=== PATIENT | female | born 1990 | race Caucasian/White ===

== ENCOUNTER 2016-12-08 11:31 | Emergency (ER) | payer SELFPAY ==
[~2016-12-08 11:31] MED LIST: ALBU17AE3; PRENATAL VIT
[2016-12-08 12:37] LABS: BASOPHILS % (AUTO) 0 % (0-10); EOSINOPHILS # (AUTO) 0.1 10^3/uL (0.0-0.3); EOSINOPHILS % (AUTO) 1 % (0-10); LYMPHOCYTES # (AUTO) 1.4 X 10^3 (1.0-4.0); LYMPHOCYTES % (AUTO) 18 % (12-44); MEAN CORPUSCULAR HEMOGLOBIN 32 PG (25-34); MEAN CORPUSCULAR HGB CONC 34 G/DL (32-36); MEAN CORPUSCULAR VOLUME 92 FL (80-99); MEAN PLATELET VOLUME 10.7 FL (7.4-10.4); MONOCYTES # (AUTO) 0.8 X 10^3 (0.0-1.0); MONOCYTES % (AUTO) 11 % (0-12); NEUTROPHILS # (AUTO) 5.3 X 10^3 (1.8-7.8); NEUTROPHILS % (AUTO) 69 % (42-75); PLATELET COUNT 224 10^3/uL (130-400); RED BLOOD COUNT 4.18 10^6/uL (4.35-5.85); WHITE BLOOD COUNT 7.6 10^3/uL (4.3-11.0)
[2016-12-08 12:44] LABS: BILIRUBIN,URINE NEGATIVE (NEGATIVE); KETONES,URINE NEGATIVE (NEGATIVE); LEUKOCYTE ESTERASE ,URINE 2+ (NEGATIVE); NITRITE,URINE NEGATIVE (NEGATIVE); PH,URINE 7 (5-9); PROTEIN,URINE NEGATIVE (NEGATIVE); UROBILINOGEN,URINE NORMAL (NORMAL)
[2016-12-08 12:48] LABS: INR 1.1 (0.8-1.4); PROTHROMBIN TIME PATIENT 13.5 SEC (12.2-14.7)
[2016-12-08 12:52] LABS: SQUAMOUS EPITHELIAL CELL,UR 25-50 /HPF; WBC,URINE 0-2 /HPF
[2016-12-08 12:56] LABS: ALANINE AMINOTRANSFERASE 17 U/L (0-55); ALBUMIN 4.8 G/DL (3.2-4.5); ANION GAP 9 MMOL/L (5-14); ASPARTATE AMINO TRANSFERASE 16 U/L (5-34); BILIRUBIN,TOTAL 0.6 MG/DL (0.1-1.0); BLOOD UREA NITROGEN 11 MG/DL (7-18); BUN/CREATININE RATIO 14; CALCIUM 9.7 MG/DL (8.5-10.1); CARBON DIOXIDE 25 MMOL/L (21-32); CHLORIDE 107 MMOL/L (98-107); CREATININE SERUM 0.81 MG/DL (0.60-1.30); GFR ESTIMATED > 60; GLUCOSE 88 MG/DL (70-105); MAGNESIUM 2.4 MG/DL (1.8-2.4); POTASSIUM 3.8 MMOL/L (3.6-5.0); SALICYLATE < 5.0 MG/DL (5.0-20.0); SODIUM 141 MMOL/L (135-145); TOTAL PROTEIN 7.7 G/DL (6.4-8.2)
[2016-12-08 12:58] LABS: ACETAMINOPHEN < 10 UG/ML (10-30); ALCOHOL < 10 MG/DL (<10)
[2016-12-08 13:16] LABS: TROPONIN I < 0.30 NG/ML (<0.30)
--- NOTE | 2016-12-08 13:30 | ED Neurological Problem ---
General Chief Complaint: seizure Stated Complaint: SEIZURE Nursing Triage Note: patient c/o possible "seizure" last night. denies previous history. Source: patient Exam Limitations: no limitations History of Present Illness Time seen by provider: 11:55 Initial Comments 26 yo female patient present to the emergency department with complaints of possible seizure last night. Denies any previous history of seizures. States she had drank approximately 16 ounces of wine, but states she was not driving. Reports feeling very "distant". [place] like the "world was rocking and spending in the distance". Patient remembers the entire episode. Reports episode lasted several hours. Does report possible syncopal episode, but states she remembers everything after falling backwards. Thinks she may have hit her head , but unsure. Reports when she woke up immediately she said "that was weird, right?". Patient reports "pooping and puking everywhere [in the bathroom]". Friend reported patient was "tremoring". Denies biting her tongue, bowel incontinence, or urinary incontinence. Did feel nauseated, but denies vomiting. Timing/Duration: waxing and waning, other (12-24 hrs) Allergies and Home Medications Allergies Coded Allergies: No Known Drug Allergies (Unverified Allergy, Mild, 11/26/08) Home Medications Albuterol 17 Gm Inh, (Reported) [ Vit] , (Reported) Constitutional: No chills, No diaphoresis, No dizziness, No fever, malaise, No other (fatigue) Eyes: Denies Blindness, Denies Blurred Vision, Denies Decreased Acuity, Denies Tunnel Vision, Denies Vision Changes Ears, Nose, Mouth, Throat: no symptoms reported Respiratory: No cough, No short of breath Cardiovascular: No chest pain, No edema, No palpitations, No syncope Gastrointestinal: No abdominal pain, No constipation, No diarrhea, No loss of appetite, No melena, No nausea (had mild nausea yesterday, none today.), No vomiting Genitourinary: No decreased output, No dysuria, No frequency, No hematuria, No incontinence, No pain : No Musculoskeletal: no symptoms reported Skin: No change in color, No lesions, No lumps, No rash Psychiatric/Neurological: See HPI All Other Systems Reviewed Negative Unless Noted: Yes (Negative excepted noted.) Past Ntudmlz-Ksgpau-Bwthpi Hx Patient Social History Recent Foreign Travel: No Contact w/Someone Who Travel: No Surgeries HX Surgeries: Yes (oral surgery) Surgeries: Appendectomy Respiratory Hx Respiratory Disorders: Yes Cardiovascular Hx Cardiac Disorders: No Neurological Hx Neurological Disorders: No Reproductive System Hx Reproductive Disorders: No Genitourinary Hx Genitourinary Disorders: No Gastrointestinal Hx Gastrointestinal Disorders: No Musculoskeletal Hx Musculoskeletal Disorders: No Endocrine Hx Endocrine Disorders: No HEENT HX ENT Disorders: Yes Psychosocial Hx Psychiatric Problems: No Blood Transfusions Hx Blood Disorders: Yes Reviewed Nursing Assessment Reviewed/Agree w Nursing PMH: Yes Family Medical History Significant Family History: No Pertinent Family Hx Physical Exam Vital Signs Capillary Refill : General Appearance: WD/WN, no apparent distress HEENT: PERRL/EOMI, normal ENT inspection, TMs normal, pharynx normal Neck: non-tender, full range of motion, supple, normal inspection Respiratory: lungs clear, normal breath sounds, no respiratory distress Cardiovascular: normal peripheral pulses, regular rate, rhythm, no edema, no murmur Peripheral Pulses: 2+ Carotid (R), 2+ Carotid (L), 2+ Dorsalis Pedis (R), 2+ Left Dors-Pedis (L), 2+ Radial Pulses (R), 2+ Radial Pulses (L) Gastrointestinal: normal bowel sounds, non tender, soft, No distended Back: normal inspection, no vertebral tenderness Extremities: normal inspection, no pedal edema, normal capillary refill Neurologic/Psychiatric: strategy analyst II-XII nml as tested, no motor/sensory deficits, alert, oriented x 3, other (flat affect) Crainal Nerves: normal hearing, normal speech, PERRL Coordination/Gait: normal finger to nose, normal gait, negative Romberg's sign Motor/Sensory: no motor deficit, no sensory deficit, no pronator drift Skin: normal color, warm/dry Progress/Results/Core Measures Results/Orders Lab Results Laboratory Tests Test 12/08/16 12:30 Range/Units White Blood Count 7.6 4.3-11.0 10^3/uL Red Blood Count 4.18 L 4.35-5.85 10^6/uL Hemoglobin 13.2 11.5-16.0 G/DL Hematocrit 39 35-52 % Mean Corpuscular Volume 92 80-99 FL Mean Corpuscular Hemoglobin 32 25-34 PG Mean Corpuscular Hemoglobin Concent 34 32-36 G/DL Red Cell Distribution Width 12.0 10.0-14.5 % Platelet Count 224 130-400 10^3/uL Mean Platelet Volume 10.7 H 7.4-10.4 FL Neutrophils (%) (Auto) 69 42-75 % Lymphocytes (%) (Auto) 18 12-44 % Monocytes (%) (Auto) 11 0-12 % Eosinophils (%) (Auto) 1 0-10 % Basophils (%) (Auto) 0 0-10 % Neutrophils # (Auto) 5.3 1.8-7.8 X 10^3 Lymphocytes # (Auto) 1.4 1.0-4.0 X 10^3 Monocytes # (Auto) 0.8 0.0-1.0 X 10^3 Eosinophils # (Auto) 0.1 0.0-0.3 10^3/uL Basophils # (Auto) 0.0 0.0-0.1 10^3/uL Prothrombin Time 13.5 12.2-14.7 SEC INR Comment 1.1 0.8-1.4 Activated Partial Thromboplast Time 28 24-35 SEC Urine Color YELLOW Urine Clarity CLEAR Urine pH 7 5-9 Urine Specific [place] 1.015 L 1.016-1.022 Urine Protein NEGATIVE NEGATIVE Urine Glucose (UA) NEGATIVE NEGATIVE Urine Ketones NEGATIVE NEGATIVE Urine Nitrite NEGATIVE NEGATIVE Urine Bilirubin NEGATIVE NEGATIVE Urine Urobilinogen NORMAL NORMAL MG/DL Urine Leukocyte Esterase 2+ H NEGATIVE Urine RBC (Auto) 1+ H NEGATIVE Urine RBC NONE /HPF Urine WBC 0-2 /HPF Urine Squamous Epithelial Cells 25-50 H /HPF Urine Crystals NONE /LPF Urine Bacteria TRACE /HPF Urine Casts NONE /LPF Urine Mucus NEGATIVE /LPF Urine Culture Indicated NO Sodium Level 141 135-145 MMOL/L Potassium Level 3.8 3.6-5.0 MMOL/L Chloride Level 107 98-107 MMOL/L Carbon Dioxide Level 25 21-32 MMOL/L Anion Gap 9 5-14 MMOL/L Blood Urea Nitrogen 11 7-18 MG/DL Creatinine 0.81 0.60-1.30 MG/DL Estimat Glomerular Filtration Rate > 60 BUN/Creatinine Ratio 14 Glucose Level 88 70-105 MG/DL Calcium Level 9.7 8.5-10.1 MG/DL Magnesium Level 2.4 1.8-2.4 MG/DL Total Bilirubin 0.6 0.1-1.0 MG/DL Aspartate Amino Transf (AST/SGOT) 16 5-34 U/L Alanine Aminotransferase (ALT/SGPT) 17 0-55 U/L Alkaline Phosphatase 62 40-136 U/L Troponin I < 0.30 <0.30 NG/ML Total Protein 7.7 6.4-8.2 G/DL Albumin 4.8 H 3.2-4.5 G/DL TSH [place] Testing 1.07 0.35-4.94 UIU/ML Salicylates Level < 5.0 L 5.0-20.0 MG/DL Urine Opiates Screen NEGATIVE NEGATIVE Urine Oxycodone Screen NEGATIVE NEGATIVE Urine Methadone Screen NEGATIVE NEGATIVE Urine Propoxyphene Screen NEGATIVE NEGATIVE Acetaminophen Level < 10 L 10-30 UG/ML Urine Barbiturates Screen NEGATIVE NEGATIVE Ur Tricyclic Antidepressants Screen NEGATIVE NEGATIVE Urine Phencyclidine Screen NEGATIVE NEGATIVE Urine Amphetamines Screen NEGATIVE NEGATIVE Urine Methamphetamines Screen NEGATIVE NEGATIVE Urine Benzodiazepines Screen NEGATIVE NEGATIVE Urine Cocaine Screen NEGATIVE NEGATIVE Urine Cannabinoids Screen POSITIVE H NEGATIVE Serum Alcohol < 10 <10 MG/DL My Orders Orders - NUNO FARIAS Acetaminophen (12/08/16 12:02) Alcohol (12/08/16 12:02) Cbc With Automated Diff (12/08/16 12:02) Comprehensive Metabolic Panel (12/08/16 12:02) Drug Screen Stat (Urine) (12/08/16 12:02) Magnesium (12/08/16 12:02) Protime With Inr (12/08/16 12:02) Partial Thromboplastin Time (12/08/16 12:02) Salicylate (12/08/16 12:02) Thyroid Analyzer (12/08/16 12:02) Troponin I (12/08/16 12:02) Ua Culture If Indicated (12/08/16 12:02) Saline Lock/Iv-Start (12/08/16 12:02) Urine Bedside (12/08/16 12:02) Ekg Tracing (12/08/16 12:02) Chest 1 View, Ap/Pa Only (12/08/16 12:02) Ct Head Wo (12/08/16 13:01) Point of Care Testing Urine -Bedside: Negative ECG Initial ECG Impression Date: Dec 08, 2016 Initial ECG Impression Time: 12:33 Initial ECG Rate: 64 Initial ECG Rhythm: Normal Sinus Initial ECG Intervals: Normal Initial ECG Impression: Normal Initial ECG Comparisson: No Previous ECG Available Comment Sinus rhythm. ECG reviewed by Dr. Guadalupe. Diagnostic Imaging Diagonstic Imaging: Xray Plain Films/CT/US/NM/MRI: chest Comments FINDINGS: Heart size is within normal limits. The lungs are clear. There is no evidence for pneumonia or for pleural effusion. There is no sign of failure. The mediastinum is not widened. The osseous structures are intact. IMPRESSION: There is no evidence for an acute cardiopulmonary abnormality. Dictated on workstation # [id number] Reviewed: Reviewed by Me (radiology report reviewed by me.) Diagonstic Imaging: CT Plain Films/CT/US/NM/MRI: head Comments There are no prior studies available for comparison. There is no mass, shift of the midline or hemorrhage to suggest an acute intracranial abnormality. The ventricles are not abnormally dilated. The bone windows show no sign of a fracture or of a destructive lesion. The orbits and sinuses were not visualized in their entirety. Where visualized, there is no acute abnormality. IMPRESSION: 1. There is no evidence for an acute intracranial abnormality. There is no sign of a mass lesion either. 2. If clinical concern regarding an underlying abnormality persists, MRI would be recommended for further study. Dictated on workstation # [id number] Reviewed: Reviewed by Me (radiology report reviewed by me.) Departure Communication Progress Notes laboratory and diagnostic findings discussed with the patient. Plan for discharge to home. All return precautions were discussed with the patient. Patient voices understanding and agrees with treatment plan. Impression Impression: Primary Impression: Near syncope Disposition: 01 HOME, SELF-CARE Condition: Improved Departure-Patient Inst. Decision time for Depature: 14:00 Referrals: [facility] (PCP) Primary Care Physician Patient Instructions: Seizures, Adult (DC), Syncope (Fainting) (DC) Add. Discharge Instructions: Tylenol over the counter as needed for pain. Motrin 800 mg by mouth every 8 hours as needed for pain. Drink plenty of fluids. Follow-up with your family practitioner for recheck early this week. Return to the emergency department for worsened symptoms or any other concerns. NUNO FARIAS Dec 08, 2016 13:30
--- NOTE | 2016-12-08 13:40 | Diagnostic Imaging Report ---
Portable erect AP chest at 1247 hours. INDICATION: Seizure, fatigue. There are no prior studies available for comparison. FINDINGS: Heart size is within normal limits. The lungs are clear. There is no evidence for pneumonia or for pleural effusion. There is no sign of failure. The mediastinum is not widened. The osseous structures are intact. IMPRESSION: There is no evidence for an acute cardiopulmonary abnormality. Dictated by: Dictated on workstation # [id number]
--- NOTE | 2016-12-08 14:17 | Diagnostic Imaging Report ---
PROCEDURE: CT head without contrast. TECHNIQUE: Multiple contiguous axial images were obtained through the brain without the use of intravenous contrast. INDICATION: Seizure. There are no prior studies available for comparison. There is no mass, shift of the midline or hemorrhage to suggest an acute intracranial abnormality. The ventricles are not abnormally dilated. The bone windows show no sign of a fracture or of a destructive lesion. The orbits and sinuses were not visualized in their entirety. Where visualized, there is no acute abnormality. IMPRESSION: 1. There is no evidence for an acute intracranial abnormality. There is no sign of a mass lesion either. 2. If clinical concern regarding an underlying abnormality persists, MRI would be recommended for further study. Dictated by: Dictated on workstation # [id number]
== END 2016-12-08 14:48 | disposition home or self-care (01) ==
LOC: EDUNIT# 11:31 → ER 11:33
DX: R55 Syncope and collapse (principal); F10.10 Alcohol abuse, uncomplicated
CPT/HCPCS: 36415; 70450; 71010; 80053; 80306; 80320; 80329; 81000; 83735; 84443; 84484; 84703; 85025; 85610; 85730; 93005

== ENCOUNTER 2022-11-15 19:10 | Emergency (ER) | payer BC ==
[~2022-11-15] VITALS: Ht 167.7 cm; Wt 77.9 kg
[2022-11-15 19:13] VITALS: BP 141/93
--- NOTE | 2022-11-15 19:25 | ED GU-Female ---
General Stated Complaint: VAG BLEEDING Source: patient History of Present Illness Date Seen by Provider: November 15, 2022 Time Seen by Provider: 19:22 Initial Comments PT ARRIVES VIA POV FROM HOME C/O VAGINAL BLEEDING FOR 2 WEEKS BLEEDING WAS INITIALLY DARK BROWN/RED, AND FOR THE LAST 3 DAYS HAS BEEN BRIGHT RED BLEEDING HAS BEEN HEAVIER TODAY, AND SHE HAS USED 3 SUPER TAMPONS SINCE 1400, AND JUST PRIOR TO ARRIVAL SHE PASSED WHAT SHE THINKS IS "TISSUE" BLEEDING HAS SLOWED SINCE SHE PASSED THIS SHE HAS BEEN HAVING INTERMITTENT LOW ABDOMINAL PAIN TODAY--DULL, CRAMPING. + NAUSEA, NO VOMITING. NO DIARRHEA NO URINARY SYMPTOMS AND VOIDING A NORMAL AMOUNT NO FEVER PT IS AB 0 --SON IS 15 YEARS OLD. SHE HAS ONLY HAD 1 DEPO-PROVERA SHOT--THAT WAS IN MID JULY, WAS DUE FOR SECOND SHOT 10/22/22, BUT DID NOT GET IT--GIVES NO REASON WHY SHE DID NOT GO BACK FOR ANOTHER SHOT. SHE HAS NOT BEEN ON ANY OTHER CONTROL SINCE THEN. SHE STATES SHE ONLY HAD OCCASIONAL SPOTTING WHILE ON DEPO-PROVERA. SHE HAS HAD PRIOR APPENDECTOMY AT AGE 18 NO PRIOR HYDROLOGY PROFESSOR PROBLEMS NO CHRONIC MEDICAL PROBLEMS, AND NO DAILY MEDICATIONS. PCP: [facility] Allergies and Home Medications Allergies Coded Allergies: No Known Drug Allergies (Unverified Allergy, Mild, 11/26/08) Patient Home Medication List Home Medication List Reviewed: Yes Albuterol (Proventil) 17 Gm Inh, (Reported) Entered as Reported by: CLEMENT SUTTON on 11/26/08 2834 [ Vit] , (Reported) Entered as Reported by: CLEMENT SUTTON on 11/26/08 3090 Review of Systems Review of Systems Constitutional: no symptoms reported Respiratory: no symptoms reported Cardiovascular: no symptoms reported Gastrointestinal: see HPI Genitourinary: see HPI Musculoskeletal: no symptoms reported Skin: no symptoms reported Psychiatric/Neurological: No Symptoms Reported Past Ycgleiu-Imthwx-Jphizy Hx Patient Social History Tobacco Use?: No Substance use?: No Alcohol Use?: Yes Alcohol Frequency: Couple times a week Past Medical History Surgeries: Yes Appendectomy Respiratory: Yes Asthma Cardiac: No Neurological: No Reproductive Disorders: No HYDROLOGY PROFESSOR History: IUD Gastrointestinal: No Musculoskeletal: No Endocrine: No HEENT: No Cancer: No Psychosocial: No Blood Disorders: Yes Family Medical History No Pertinent Family Hx Physical Exam Vital Signs Vital Signs - First Documented 11/15/22 19:13 Temp 36.1 Pulse 64 Resp 16 B/P (MAP) 141/93 (109) Pulse Ox 97 O2 Delivery Room Air Capillary Refill : Height, Weight, BMI Height: 5'6.00" Weight: 165lbs. oz. 74.052521pg; BMI Method:Stated General Appearance: WD/WN, no apparent distress HEENT: PERRL/EOMI Neck: normal inspection Cardiovascular: regular rate, rhythm Respiratory: normal breath sounds Gastrointestinal: soft, tenderness (MILD SUPRAPUBIC TENDERNESS) Extremities: normal inspection, normal capillary refill Neurologic/Psychiatric: health it specialist II-XII nml as tested, no motor/sensory deficits, alert, normal mood/affect, oriented x 3 Skin: normal color, warm/dry Progress/Results/Core Measures Suspected Sepsis SIRS Temperature: Pulse: Respiratory Rate: Laboratory Tests 11/15/22 19:28: White Blood Count 8.1 Blood Pressure / Mean: Laboratory Tests 11/15/22 19:28: Creatinine 0.88, Platelet Count 256 Results/Orders Lab Results Laboratory Tests Test 11/15/22 19:28 Range/Units White Blood Count 8.1 4.3-11.0 10^3/uL Red Blood Count 4.12 3.80-5.11 10^6/uL Hemoglobin 12.7 11.5-16.0 g/dL Hematocrit 37 35-52 % Mean Corpuscular Volume 90 80-99 fL Mean Corpuscular Hemoglobin 31 25-34 pg Mean Corpuscular Hemoglobin Concent 34 32-36 g/dL Red Cell Distribution Width 11.9 10.0-14.5 % Platelet Count 256 130-400 10^3/uL Mean Platelet Volume 10.4 9.0-12.2 fL Immature Granulocyte % (Auto) 0 % Neutrophils (%) (Auto) 62 42-75 % Lymphocytes (%) (Auto) 28 12-44 % Monocytes (%) (Auto) 7 0-12 % Eosinophils (%) (Auto) 1 0-10 % Basophils (%) (Auto) 1 0-10 % Neutrophils # (Auto) 5.1 1.8-7.8 10^3/uL Lymphocytes # (Auto) 2.3 1.0-4.0 10^3/uL Monocytes # (Auto) 0.6 0.0-1.0 10^3/uL Eosinophils # (Auto) 0.1 0.0-0.3 10^3/uL Basophils # (Auto) 0.1 0.0-0.1 10^3/uL Immature Granulocyte # (Auto) 0.0 0.0-0.1 10^3/uL Urine Color YELLOW Urine Clarity CLEAR Urine pH 6.0 5-9 Urine Specific [place] 1.010 L 1.016-1.022 Urine Protein NEGATIVE NEGATIVE Urine Glucose (UA) NEGATIVE NEGATIVE Urine Ketones NEGATIVE NEGATIVE Urine Nitrite NEGATIVE NEGATIVE Urine Bilirubin NEGATIVE NEGATIVE Urine Urobilinogen 0.2 < = 1.0 MG/DL Urine Leukocyte Esterase NEGATIVE NEGATIVE Urine RBC (Auto) 3+ H NEGATIVE Urine RBC 25-50 H /HPF Urine WBC NONE /HPF Urine Squamous Epithelial Cells 0-2 /HPF Urine Crystals NONE /LPF Urine Bacteria NEGATIVE /HPF Urine Casts NONE /LPF Urine Mucus NEGATIVE /LPF Urine Culture Indicated NO Sodium Level 137 135-145 MMOL/L Potassium Level 3.8 3.6-5.0 MMOL/L Chloride Level 106 98-107 MMOL/L Carbon Dioxide Level 19 L 21-32 MMOL/L Anion Gap 12 5-14 MMOL/L Blood Urea Nitrogen 16 7-18 MG/DL Creatinine 0.88 0.60-1.30 MG/DL Estimat Glomerular Filtration Rate 91 BUN/Creatinine Ratio 18 Glucose Level 102 70-105 MG/DL Calcium Level 8.5 8.5-10.1 MG/DL Human Chorionic Gonadotropin, Quant < 5 <5 MIU/ML My Orders Orders - SUSHANT GABRIEL DO Basic Metabolic Panel (11/15/22 19:22) Cbc With Automated Diff (11/15/22 19:22) Hcg,Quantitative (11/15/22 19:22) Ed Iv/Invasive Line Start (11/15/22 19:22) Monitor-Rhythm Ecg Trace Only (11/15/22 19:22) Ua Culture If Indicated (11/15/22 19:34) Vital Signs/I&O 11/15/22 19:13 Temp 36.1 Pulse 64 Resp 16 B/P (MAP) 141/93 (109) Pulse Ox 97 O2 Delivery Room Air Capillary Refill : Progress Note : Progress Note PT DID NOT GO THROUGH ANY PADS OR TAMPONS DURING ER STAY PT DECLINES PELVIC EXAM BLOOD TYPE IS O+ DISCUSSED TEST RESULTS, ANTICIPATED COURSE, NEED FOR FOLLOW UP AND RETURN PRECAUTIONS. HER QUANT BETA HCG IS UNDETECTABLE, IT IS UNLIKELY THAT SHE HAS BEEN RECENTLY OR THAT WHAT SHE PASSED TODAY WAS TISSUE FROM A . DISCUSSED THAT HER SYMPTOMS WERE LIKELY DUE TO HER RECENT STARTING AND THEN STOPPING OF DEPO-PROVERA, AND THAT IRREGULAR BLEEDING WAS EXPECTED FOR SOME TIME, AND SHE HAS DISCONTINUED IT, HER BLEEDING WOULD LIKELY BE HEAVIER SHE HAS NOT HAD ANY SIGNIFICANT BLEEDING SINCE SHE STARTED IT IN JULY. DISCUSSED OPTION OF OTHER CONTROL, AND PT IS ADAMANT THAT SHE DOES NOT WANT ANY KIND OF CONTROL AT THIS TIME. Departure Impression Primary Impression: IRREGULAR VAGINAL BLEEDING Disposition: HOME, SELF-CARE Condition: Stable Departure-Patient Inst. Decision time for Depature: 21:05 Referrals: EMI RUTH APRN (PCP) Primary Care Physician Patient Instructions: IRREGULAR VAGINAL BLEEDING Add. Discharge Instructions: FOLLOW UP WITH [facility] NEEDED SUSHANT GABRIEL DO November 15, 2022 19:25
[2022-11-15 19:40] LABS: BILIRUBIN,URINE NEGATIVE (NEGATIVE); CLARITY,URINE CLEAR; COLOR,URINE YELLOW; GLUCOSE, URINE (UA) NEGATIVE (NEGATIVE); KETONES,URINE NEGATIVE (NEGATIVE); LEUKOCYTE ESTERASE ,URINE NEGATIVE (NEGATIVE); NITRITE,URINE NEGATIVE (NEGATIVE); PROTEIN,URINE NEGATIVE (NEGATIVE)
[2022-11-15 19:44] LABS: BASOPHILS # (AUTO) 0.1 10^3/uL (0.0-0.1); BASOPHILS % (AUTO) 1 % (0-10); EOSINOPHILS # (AUTO) 0.1 10^3/uL (0.0-0.3); EOSINOPHILS % (AUTO) 1 % (0-10); HEMATOCRIT 37 % (35-52); HEMOGLOBIN 12.7 g/dL (11.5-16.0); LYMPHOCYTES # (AUTO) 2.3 10^3/uL (1.0-4.0); LYMPHOCYTES % (AUTO) 28 % (12-44); MEAN CORPUSCULAR HEMOGLOBIN 31 pg (25-34); MEAN CORPUSCULAR HGB CONC 34 g/dL (32-36); MEAN CORPUSCULAR VOLUME 90 fL (80-99); MEAN PLATELET VOLUME 10.4 fL (9.0-12.2); MONOCYTES # (AUTO) 0.6 10^3/uL (0.0-1.0); MONOCYTES % (AUTO) 7 % (0-12); NEUTROPHILS # (AUTO) 5.1 10^3/uL (1.8-7.8); NEUTROPHILS % (AUTO) 62 % (42-75); PLATELET COUNT 256 10^3/uL (130-400); WHITE BLOOD COUNT 8.1 10^3/uL (4.3-11.0)
[2022-11-15 19:53] LABS: BACTERIA,URINE NEGATIVE /HPF; RBC,URINE 25-50 /HPF; SQUAMOUS EPITHELIAL CELL,UR 0-2 /HPF
[2022-11-15 20:06] LABS: BUN/CREATININE RATIO 18; CALCIUM 8.5 MG/DL (8.5-10.1); CARBON DIOXIDE 19 MMOL/L (21-32); CHLORIDE 106 MMOL/L (98-107); CREATININE SERUM 0.88 MG/DL (0.60-1.30); GFR ESTIMATED 91; GLUCOSE 102 MG/DL (70-105); POTASSIUM 3.8 MMOL/L (3.6-5.0); SODIUM 137 MMOL/L (135-145)
== END 2022-11-15 21:11 | disposition home or self-care (01) ==
LOC: EDUNIT# 19:10 → ER 19:12
DX: N93.9 Abnormal uterine and vaginal bleeding, unspecified (principal); Z90.49 Acquired absence of other specified parts of digestive tract; Z28.311 Partially vaccinated for COVID-19
CPT/HCPCS: 36415; 80048; 81000; 84702; 85025; 93041

== ENCOUNTER 2022-11-23 09:10 | Outpatient (RCR) | payer BC | END 2022-11-23 14:28 | disposition home or self-care (01) | DX: M54.50 Low back pain, unspecified (principal) ==

== ENCOUNTER → 2022-12-14 | Outpatient (CLI) | payer BC ==
[~2022-12-14] MED LIST changes: +POLY17PO6 PO; +PSYL0.4C2 PO
--- NOTE | 2022-12-14 10:11 | Diagnostic Imaging Report ---
PROCEDURE: US Gallbladder. TECHNIQUE: Multiple real-time grayscale images were obtained over the right upper quadrant in various projections. INDICATION: Abdominal pain. Liver is upper limits of normal in size at 17.6 cm. Portal vein is patent and shows normal direction of flow. No liver mass is detected. Gallbladder is without stones or sludge. No wall thickening or biliary duct dilatation is seen. The pancreas is unremarkable. Aorta is non-aneurysmal. IVC is patent. Right kidney contains a 12 mm cyst in the upper pole. No calculi or hydronephrosis is detected. There is no ascites. IMPRESSION: 1. No evidence of cholelithiasis or acute cholecystitis. Dictated by: Dictated on workstation # [id number]
== END ==
LOC: RAD 08:33
PROVIDERS: ATTEND Surgery
DX: R10.9 Unspecified abdominal pain (principal)
CPT/HCPCS: 76705

== ENCOUNTER 2022-12-17 10:43 | Outpatient (CLI) | payer BC ==
[~2022-12-17] VITALS: Ht 167.6 cm; Wt 77.4 kg
[~2022-12-17 10:43] MED LIST changes: -POLY17PO6 PO; -PSYL0.4C2 PO
[2022-12-18] MEDS ORDERED: POLY17PO6 PO (10:34)
[2022-12-18] MEDS ORDERED: PSYL0.4C2 PO (10:34)
== END 2022-12-18 10:38 | disposition home or self-care (01) ==
LOC: PREOP 10:43
PROVIDERS: ATTEND Surgery
DX: Z01.818 Encounter for other preprocedural examination (principal)

== ENCOUNTER 2022-12-24 09:25 | Day surgery (SDC) | payer BC ==
[~2022-12-24] VITALS: Ht 167.6 cm; Wt 77.4 kg
[~2022-12-24 09:25] MED LIST changes: +POLY17PO6 PO; +PSYL0.4C2 PO
[2022-12-24] MEDS ORDERED: LACTATED RINGERS 1,000 ML IV STA (09:27)
[2022-12-24] MEDS ORDERED: HURRICAINE EXT TUBE (BENZOCAINE) XX PRN (09:30)
[2022-12-24 09:35] VITALS: BP 143/83
[2022-12-24] MEDS ORDERED: HURRICAINE EXT TUBE (BENZOCAINE) ONE (09:48)
[2022-12-24] MEDS ORDERED: LACTATED RINGERS 1,000 ML IV ONE (09:48)
--- NOTE | 2022-12-24 10:08 | Progress Note-Pre Operative ---
Pre-Operative Progress Note Date of Available H&P: Dec 11, 2022 Date H&P Reviewed: Dec 24, 2022 Time H&P Reviewed: 10:06 History & Physical: H&P Reviewed, Patient Examed, No changes noted Pre-Operative Diagnosis: Change in bowel habits, abd pain, epigastric pain JUANCHO ALVAREZ DO Dec 24, 2022 10:08
[2022-12-24] MEDS ORDERED: MIDAZOLAM 2 MG/2 ML (VERSED) VIAL ONE (11:24)
[2022-12-24] MEDS ORDERED: PROPOFOL INJECTION 50 ML IV ONE ×2 (11:24→11:37)
[2022-12-24 11:50] VITALS: BP 122/74
--- NOTE | 2022-12-24 11:51 | Progress Note-Post Operative ---
Post-Operative Progess Note Surgeon (s)/Respiratory Director (s) Surgeon JUANCHO ALVAREZ DO Respiratory Director: RADHA Walters Pre-Operative Diagnosis Change in bowel habits, abd pain, epigastric pain Post-Operative Diagnosis Gastritis Esophagitis Diverticula int hemorrhoids Procedure & Operative Findings Date of Procedure 12/24/22 Procedure Performed/Findings EGD with bx Colonoscopy PROCEDURE NOTE: After informed consent was obtained, the patient was brought to the endoscopy suite, placed in bed in left lateral decubitus position. She was administered IV sedation by the PLANT ELECTRICIAN who then monitored vitals the entire time, heart rate, blood pressure and pulse ox and the scope was inserted down the mouth through the esophagus into the stomach. On the way down, noted some mild esophagitis, took a picture, pushed into the stomach, pushed past the antrum into the duodenum. Duodenum looked good. Pulled back and did a biopsy of antrum, then retroflexed the scope, did not see a hiatal hernia and then pulled the scope into the GE junction. I then did a biopsy of the GE junction. Pushed the scope back into the stomach, suctioned all the air out of the stomach. At this point pulled the scope up the esophagus and out the mouth. Switched camera, switched gloves, went down below and started the colonoscopy. Pushed all the way to about 120 cm and pushed into the cecum, took a picture of the appendiceal orifice and noted the ileocecal valve. Then slowly withdrew the scope insufflating to look circumferentially at the mi starting in the cecum, up the ascending colon to the hepatic flexure, then down the transverse colon to the splenic flexure, into the descending colon, down into the sigmoid and then into the rectal vault. She had multiple diverticula in descending and the Sigmoid colon; I took pictures of them. Finally retroflexed the scope and took a picture of the internal hemorrhoids. The patient tolerated the procedure and she recovered in the endoscopy suite. Recommended for repeat colonoscopy in 10 years Anesthesia Type IV sedation by PLANT ELECTRICIAN Estimated Blood Loss Estimated blood loss (mL): scant Specimens/Packing Specimens Removed antral bx GE jxn bx JUANCHO ALVAREZ DO Dec 24, 2022 11:51
--- NOTE | 2022-12-24 11:52 | Endoscopy Discharge Instruct ---
Endo Procedure/Findings Findings 1.: Gastritis 2.: Diverticulosis 3.: Internal Hemorrhoids Discharge Instructions - Activity: You might feel a little sleepy until tomorrow. This is due to the medicine you received to relax you. Until tomorrow, you should: NOT drive a car, operate machinery or power tools. NOT drink any alcoholic beverages. NOT make any important decisions or sign importortant papers. Do not return to work until tomorrow, unless otherwise instructed. Resume previous activities tomorrow. Diet: Start by taking liquids. If you tolerate liquids, advance to solid food. 1.: EGD in 3 years 2.: Colonscopy in 10 years Notify Physician - If you experience excessive bleeding, unusual abdominal pain, fever, or chest pain, contact your doctor immediately. Follow-Up: Other Follow up in my office in one week JUANCHO ALVAREZ DO Dec 24, 2022 11:52
[2022-12-24 11:55] VITALS: BP 111/73
[2022-12-24 12:00] VITALS: BP 116/76
--- NOTE | 2022-12-24 12:28 | Anesthesia-General Post-Op ---
MAC Patient Condition Mental Status/LOC: Same as Preop Cardiovascular: Satisfactory Nausea/Vomiting: Absent Respiratory: Satisfactory Pain: Controlled Complications: Absent Post Op Complications Complications None Follow Up Care/Instructions Patient Instructions None needed. Anesthesiology Discharge Order Discharge Order Patient is doing well, no complaints, stable vital signs, no apparent adverse anesthesia problems. No complications reported per nursing. DELTA DAVEY CRNA Dec 24, 2022 12:28
[2022-12-24 12:43] VITALS: BP 122/82
[2022-12-24 12:44] VITALS: BP 122/82
== END 2022-12-24 12:46 | disposition home or self-care (01) ==
LOC: ENDO 09:25
PROVIDERS: ATTEND Surgery
DX: K57.30 Diverticulosis of large intestine without perforation or abscess without bleeding (principal); K64.8 Other hemorrhoids; K29.70 Gastritis, unspecified, without bleeding; K20.90 Esophagitis, unspecified without bleeding; K31.89 Other diseases of stomach and duodenum; F17.290 Nicotine dependence, other tobacco product, uncomplicated; Z28.310 Unvaccinated for COVID-19
CPT/HCPCS: 84703